=== PATIENT | male | born 1965 | race Caucasian/White ===

== ENCOUNTER 2016-09-05 07:36 | Day surgery (SDC) | payer OTHER ==
[~2016-09-05] VITALS: Ht 185.4 cm; Wt 94.0 kg
[~2016-09-05 07:36] MED LIST: ASPI-628 PO; AZIT500T5 PO; CITA20TA11 PO; DXM4T PO; Sodium Chloride LOK Flush 10 mL Syringe IV PRN; fentaNYL-PF 50 mCg/mL 2 mL Inj IVPUSH PRN
[2016-09-05 07:50] VITALS: BP 153/98; PULSE 65; RESP 16; O2SAT 95
[2016-09-05] MEDS: 0.9% Sodium Chloride 1,000 ML IV SCH ×2 (08:48→09:06)
[2016-09-05 09:24] VITALS: BP 142/90; PULSE 68; RESP 13; O2SAT 92
[2016-09-05 09:33] VITALS: BP 130/87; PULSE 67; RESP 15; O2SAT 92
[2016-09-05 09:43] VITALS: BP 142/90; PULSE 67; RESP 15; O2SAT 92
--- NOTE | 2016-09-05 23:03 | ENDO ---
[address] [address] ENDOSCOPY PROCEDURE PATIENT: SEVERO GILBERT : 1965 MR#: [id number] ADMIT: 09/05/2016 JOB ID: [id number] PREOPERATIVE DIAGNOSIS: Family history of colon polyps. POSTOPERATIVE DIAGNOSES: 1. Sigmoid diverticulosis. 2. Distal rectal polyps grossly consistent with hyperplastic polyps. OPERATION: Colonoscopy into terminal ileum with rectal biopsies. SURGEON: Dwayne Wiley MD. INDICATION: The patient is a 50-year-old man with a family history of colon polyps. He is here for screening colonoscopy. He had a colonoscopy six years ago that showed no polyps. FINDINGS: He had a good prep. The scope was advanced to the cecum, and the terminal ileum was intubated. The terminal ileum was grossly normal. The scope was withdrawn over 13 minutes 46 seconds. He had sigmoid diverticulosis, and the only polyps identified were in the very distal rectum seen on retroflex views grossly consistent with hyperplastic polyps. DESCRIPTION OF PROCEDURE: The procedure and sedation plan was discussed with the patient and nursing staff, and a procedural time-out was held. He received 6 mg of Versed and 125 mcg of fentanyl. A digital rectal exam was performed. Then the Olympus PCF-H180 AL video colonoscope was passed transanally, advanced to the cecum and into the terminal ileum with results as stated above and cold forceps biopsies as stated above. The patient tolerated the procedure well. RECOMMENDATIONS: Would recommend repeat colonoscopy in five years.
--- NOTE | 2016-09-06 15:43 | PATH ---
SURGICAL PATHOLOGY Attending Physician:Ankita Mariee CASE STATUS: Signed Out PATIENT NAME: SEVERO GILBERT PID: [id number] : 1965 DATE COLLECTED:09/05/2016 16:49 SPECIMEN: Rectum, Biopsy CLINICAL HISTORY: 1. RECTAL POLYPS X3 FINAL DIAGNOSIS: 1.RECTAL POLYPS: CHANGES CONSISTENT WITH HYPERPLASTIC POLYPS INVOLVING ALL THREE BIOPSY FRAGMENTS. ICD10 CODE K62.1 GROSS DESCRIPTION: The specimen is received in one formalin filled container labeled with the patient's name, sublabeled "rectal polyps x3" and consists of 3 tiny portions of tissue which aggregate to 0.3 x 0.3 x 0.2 CM. The specimen is entirely submitted in one cassette. 09/05/2016 [facility] MICRO DESCRIPTION: See diagnosis. ICD-9 CODES: CPT CODES: 1: 33322 Electronically Signed Out Uriel Goff MD [facility] [address], [place] [address] Technical component performed at [facility], [facility] [address], [place], [address]
== END 2016-09-05 23:59 | disposition home or self-care (01) ==
LOC: END 07:36
PROVIDERS: ATTEND Surgery
DX: Z12.11 Encounter for screening for malignant neoplasm of colon (principal); K62.1 Rectal polyp; K57.30 Diverticulosis of large intestine without perforation or abscess without bleeding; Z83.71 Family history of colonic polyps; F41.8 Other specified anxiety disorders; Z79.82 Long term (current) use of aspirin
CPT/HCPCS: 45380; 99153; G0500; J7030